=== PATIENT | female | born 1985 | race Caucasian/White ===

== ENCOUNTER 2018-04-16 14:08 | Emergency (ER) | payer BC ==
[2018-04-16] MEDS ORDERED: Hyoscyamine 0.125 MG Tab.SL SL ONE (15:03)
--- NOTE | 2018-04-16 15:03 | EDM.PDOC ---
ED HPI GENERAL MEDICAL PROBLEM - General Chief Complaint: Chest Pain Stated Complaint: HEART BURN X 3 DAYS SENT BY [facility] Time Seen by Provider: 04/16/18 14:53 Source of Information: Reports: Patient History Limitations: Reports: No Limitations - History of Present Illness INITIAL COMMENTS - FREE TEXT/NARRATIVE: 32-year-old female presents to the ED at the request of [facility]-- walk- in clinic. She presented there with a three-day history of central chest pain which she describes as heartburn-like. She states she doesn't normally get heartburn. She has chest pressure that radiates up towards her throat. It also radiates slightly across the upper anterior chest at times. She wishes she could just give a good burp or belch and the pain would go away but she cannot get anything to come up. Pain radiates through to her mid back i.e. intrascapular area. She has had no previous intra-abdominal surgery she still has her gallbladder. She's had no nausea or vomiting. She's had no recent he met emesis. She does not drink alcohol. Shoulder has no true odynophagia. No known history of hiatal hernia. 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 Throat Pain Score (Numeric/FACES): 4 - Related Data Allergies Allergy/AdvReac Type Severity Reaction Status Date / Time sulfamethoxazole Allergy Rash Verified 04/16/18 14:33 [From Bactrim] trimethoprim [From Bactrim] Allergy Rash Verified 04/16/18 14:33 Home Meds: Home Meds Dicyclomine [Bentyl] 20 mg PO Q6H PRN #12 tablet 04/16/18 [Rx] Past Medical History HEENT History: Reports: Impaired 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 Denies: Fever, Chills, Malaise, Weakness, Weight Loss HEENT: Reports: No Symptoms Respiratory: Reports: No Symptoms, Other (Can take a full deep breath as it makes the epigastric pain worse.). Denies: Shortness of Breath, Wheezing, Pleuritic Chest Pain, Cough, Sputum Cardiovascular: Reports: Chest Pain. Denies: Blood Pressure Problem (Diffuse pressure central chest which is burning in quality), Claudication, Dyspnea on Exertion, Edema, Lightheadedness, Orthopnea, Palpitations, PND, Syncope, Other Endocrine: Reports: No Symptoms GI/Abdominal: Reports: Abdominal Pain, Nausea. Denies: Anorexia (Epigastrium rating up into the chest and through to her mid back.), Black Stool, Bloody Stool, Constipation, Diarrhea, Decreased Appetite, Difficulty Swallowing, Distension, Hematemesis, Hematochezia, Stool Incontinence, Vomiting : Reports: No Symptoms (Mild nausea times) Musculoskeletal: Reports: No Symptoms Skin: Reports: No Symptoms Neurological: Reports: No Symptoms Psychiatric: Reports: No Symptoms Hematologic/Lymphatic: Reports: No Symptoms Immunologic: Reports: No Symptoms ED EXAM, GENERAL - Physical Exam Exam: See Below Exam Limited By: No Limitations General Appearance: Alert, WD/WN, No Apparent Distress Eye Exam: Bilateral Eye: Normal Inspection (No jaundice.) Throat/Mouth: Normal Inspection, Normal Lips, Normal Oropharynx Head: Atraumatic, Normocephalic Neck: Normal Inspection, Supple, Non-Tender, Full Range of Motion. No: Lymphadenopathy (L), Lymphadenopathy (R) Respiratory/Chest: No Respiratory Distress, Lungs Clear, Normal Breath Sounds, No Accessory Muscle Use, Chest Non-Tender Cardiovascular: Normal Peripheral Pulses, Regular Rate, Rhythm, No Edema, No Gallop, No Murmur GI/Abdominal: Normal Bowel Sounds, Soft, No Organomegaly, No Distention, Tender (Tenderness on firm palpation the epigastrium only. There is no Jacobs sign or evidence of gallbladder disease.) Back Exam: Normal Inspection, Full Range of Motion. No: CVA Tenderness (L), CVA Tenderness (R) Extremities: Normal Inspection, Normal Range of Motion, Non-Tender, No Pedal Edema Neurological: Alert, Oriented, CN II-XII Intact, Normal Cognition, Normal Gait Psychiatric: Normal Affect, Normal Mood Skin Exam: Warm, Dry, Intact, Normal Color, No Rash EKG INTERPRETATION EKG Date: 04/16/18 Time: 15:08 Rhythm: NSR Rate (Beats/Min): 66 [place]: LAD-Left [place] Deviation P-Wave: Present (Mild left axis deviation of -11) QRS: Other (Decreased voltage precordial leads due to thick chest. RSR prime wave in V2 -normal variant) ST-T: Normal QT: Normal EKG Interpretation Comments: Essentially normal ECG. Course - Vital Signs Last Recorded V/S: Last Vital Signs Temp 36.8 C 04/16/18 16:21 Pulse 78 04/16/18 16:21 Resp 20 04/16/18 16:21 BP 135/70 04/16/18 16:21 Pulse Ox 99 04/16/18 16:21 - Orders/Labs/Meds Orders: Active Orders 24 hr Category Date Time Status EKG Documentation Completion [RC] STAT Care 04/16/18 15:06 Active Chest 2V [CR] Stat Exams 04/16/18 15:04 Taken Meds: Medications Discontinued Medications Generic Name Dose Route Start Last Admin Trade Name Freq PRN Reason Stop Dose Admin Dicyclomine HCl 20 mg 04/16/18 15:04 04/16/18 15:26 Bentyl PO 04/16/18 15:05 20 mg ONETIME ONE Administration Hyoscyamine 0.125 mg 04/16/18 15:03 04/16/18 15:26 Hyomax-Sl SL 04/16/18 15:04 0.125 mg ONETIME ONE Administration - Radiology Interpretation Free Text/Narrative:: 32-year-old female presents to the ED with central chest discomfort which she described as heartburn-like for the last 3 days. She awoke with these symptoms Saturday morning. April 14. She's not really prone to heartburn. She wishes she could just give a good burp or belch to get rid of the pain. She has pressure in her epigastrium that radiates up into her retrosternal chest and sometimes across the upper sternum at the manubriosternal joint. Does not make her short of breath but taking a deep breath does make the pain worse in the epigastrium. Pain radiates through to her mid back between the shoulder blades. No associated nausea vomiting or odynophagia. No recent vomiting or hematemesis. Bowel function is otherwise normal. She has no history of hiatal hernia or similar type pain. Still has her gallbladder. Emanation suggest pain is mostly in the epigastrium is likely that of hiatal hernia. Plan labs and is 0.125 mg sublingually and Bentyl 20 mg by mouth. Two-view chest x-ray and an ECG will be done. - Re-Assessments/Exams Free Text/Narrative Re-Assessment/Exam: 04/16/18 16:00: Two-view chest x-ray is within normal limits. No ability to confirm a hiatal hernia is evident on lateral chest x-ray. ECG was normal. Patient is feeling much improved. States that no further epigastric pain and her throat discomfort and mid chest discomfort is nearly completely gone. Plan will be therefore to discharge her home on Bentyl 20 mg every 6 hours for 4 consecutive doses and relieve hiatal hernia pain. I gave her 12 tablets so that she'll have some on hand for the next attack. Advised strongly not to eat anything or drink much for at least 3 hours before going to bed at night. By history alone she has chronic esophagitis from refluxing at night. Ideally she needs to lose 25-30 pounds of weight. Is aware of this. Advised Prilosec 20 mg once daily at bedtime for the next month. We'll also place her on Zantac 150 milligrams twice a day as this will work today. She will use morning and night for the next 6-7 days. Will return if not markedly improved in 48 hours time. Failing this she should follow-up with her personal care physician to arrange upper GI endoscopy. This will confirm the diagnosis of suspect hiatal hernia and determine whether or not she is a candidate for fundoplication. Departure - Departure Time of Disposition: 16:09 Disposition: Home, Self-Care 01 Condition: Fair Clinical Impression: Non-cardiac chest pain, Hiatal hernia with gastroesophageal reflux disease and esophagitis Prescriptions: Dicyclomine [Bentyl] 20 mg PO Q6H PRN #12 tablet PRN Reason: Abdominal cramps/diarrhea Instructions: Hernia, Adult Referrals: Supriya Maloney MD [Primary Care Provider] - Forms: ED Department Discharge Additional Instructions: Evaluation the emergency room today in regards to persistent central chest discomfort rating up towards the throat and across the upper mid chest starting in the epigastrium repetitive your stomach. This started 3 days ago and is been very persistent. Examination reveals tenderness only in the epigastrium with good air entry to both lungs. Heart tracing was completely normal. Two-view chest x-ray was done and is within normal limits and it did not confirm a hiatal hernia as I had hoped. You have a hiatal hernia which means part of your stomach has herniated up into your lower chest and stretching the opening in the diaphragm that the food pipe travels through. This causes pain with deep breathing and pain rating usually through to the mid back between the shoulder blades. The valve and these you at risk of gastroesophageal reflux were acid from the stomach able to reflux up into the lower food pipe which can cause spasm inflammation and/or ulceration. Treatment in the ED was less than 0.125 mg of the tongue and Bentyl 20 mg by mouth which helped a good deal with the discomfort. I would suggest using the second 20 mg once daily every night at bedtime for the next month. I would suggest use of Zantac 150 mg at bedtime and first thing in the morning for the next 6 days as it starts working today. Suggest use of Bentyl 20 mg by mouth every 6 hours for 4 consecutive doses and then stop as needed to relieve similar type pain. May use antacids such as Tums or Rolaids if required for severe burning discomfort. Avoiding anything to eat or drink much for 3 hours before lying down for bed is the most important thing to try and prevent a hiatal hernia from occurring. Gas-forming foods such as onions, cauliflower, broccoli, asparagus, CABG is something to be wary of his well. If symptoms persist follow-up with your personal care physician to arrange for upper GI endoscopy. - My Orders Last 24 Hours: My Active Orders 04/16/18 15:04 Chest 2V [CR] Stat 04/16/18 15:06 EKG Documentation Completion [RC] STAT - Assessment/Plan Last 24 Hours: My Active Orders 04/16/18 15:04 Chest 2V [CR] Stat 04/16/18 15:06 EKG Documentation Completion [RC] STAT
[2018-04-16] MEDS ORDERED: Dicyclomine 10 MG Cap PO ONE (15:04)
--- NOTE | 2018-04-17 06:51 | CR ---
Chest: Two views of the chest were obtained. Comparison: No prior chest x-ray. Heart size and mediastinum are normal. Lungs are clear. Bony structures appear within normal limits. Impression: 1. Nothing acute is seen on two-view chest x-ray. Diagnostic code #1
== END 2018-04-16 16:15 | disposition home or self-care (01) ==
LOC: JD.ED 14:08
DX: K44.9 Diaphragmatic hernia without obstruction or gangrene (principal); K21.0 Gastro-esophageal reflux disease with esophagitis; R07.89 Other chest pain; Z88.2 Allergy status to sulfonamides; Z88.1 Allergy status to other antibiotic agents
CPT/HCPCS: 71046; 93005; 99284; A9270; 93010